=== PATIENT | male | born 1965 | race Hispanic/Latino ===

== ENCOUNTER 2019-07-10 07:20 | Outpatient (CLI) | payer BC ==
--- NOTE | 2019-07-10 08:00 | ULT ---
ULTRASOUND ABDOMEN LIMITED: (RIGHT UPPER QUADRANT) DATE: 07/10/2019 HISTORY: 53-year-old male with right upper quadrant abdominal pain FINDINGS: Gallbladder: Normal wall thickness. No gallstones or sludge identified. No pericholecystic fluid. Liver: Normal parenchymal echogenicity. Right kidney: No hydronephrosis. Pancreas: Visualized, with no gross sonographic abnormality identified (although ultrasound is relati vely insensitive for the detection of pancreatic pathology compared to CT and MRI.). Common duct caliber: 4 mm. IMPRESSION: Normal.
== END 2019-07-10 07:21 | disposition home or self-care (01) ==
LOC: BICULT 07:20
PROVIDERS: ATTEND Family Medicine
DX: R10.9 Unspecified abdominal pain (principal)
CPT/HCPCS: 76705

== ENCOUNTER 2025-03-14 06:56 | Day surgery (SDC) | payer OTHER, SELFPAY ==
[2025-03-12 15:57] VITALS: BMI 29.2
[2025-03-14] MEDS ORDERED: CEFAZOLIN 2 GM VIAL ONE (08:16)
[2025-03-14] MEDS ORDERED: fentaNYL PF 100 MCG/2 ML SYRINGE ONE (08:43)
[2025-03-14] MEDS ORDERED: PROPOFOL 200 MG/20 ML VIAL ONE (09:21)
[2025-03-14] MEDS ORDERED: Ondansetron PF 4 MG/2 ML Vial ONE (09:23)
== END 2025-03-14 12:48 | disposition home or self-care (01) ==
LOC: SDC 06:56
PROVIDERS: ATTEND Orthopaedic Surgery
PROC: 0L840ZZ Division of Left Upper Arm Tendon, Open Approach (ICD-10-PCS; principal; 2025-03-14)
PROC: 01N40ZZ Release Ulnar Nerve, Open Approach (ICD-10-PCS; principal; 2025-03-14)
DX: G56.22 Lesion of ulnar nerve, left upper limb (principal); M19.122 Post-traumatic osteoarthritis, left elbow
CPT/HCPCS: J1100; J2405; J2704